=== PATIENT | female | born 1960 | race Hispanic/Latino ===

== ENCOUNTER 2016-09-10 12:50 | Emergency (ER) | payer OTHER, MEDICAID ==
[2016-09-10 12:58] VITALS: TEMP 99.2; O2SAT 98
[2016-09-10 13:01] VITALS: BMI 40.7
--- NOTE | 2016-09-10 14:12 | ED PDOC ---
Arrival/HPI - General Chief Complaint: Lower Extremity Problem/Injury Time Seen by Provider: 09/10/16 13:18 Historian: Patient - History of Present Illness Narrative History of Present Illness (Text): 09/10/16 13:54 A 55 year old female, whose past medical history includes diabetes, hypertension , asthma, low calcium, rhabdomyolysis and right knee fracture/surgery in 2011, presents to the emergency department complaining of right lower extremity pain for the past few days. Patient reports she felt a muscle pull while getting on a bus. Patient able to ambulate. Patient denies any trauma, fever, chills, nausea, vomiting, diarrhea, abdominal pain, chest pain, shortness of breath or any other complaints. PMD: Dr. Smalls Orthopedist: Dr. Armstrong Time/Duration: Other (few days) Symptom Course: Unchanged Quality: Other Context: Other Past Medical History - Provider Review Nursing Documentation Reviewed: Yes - Tetanus Immunization Tetanus Immunization: Up to Date - Cardiac Hx Cardiac Disorders: Yes Hx Hypertension: Yes Hx Peripheral Edema: Yes - Pulmonary Hx Respiratory Disorders: Yes Hx Asthma: Yes - Neurological Hx Neurological Disorder: No - HEENT Hx HEENT Disorder: No - Renal Hx Renal Disorder: No - Endocrine/Metabolic Hx Endocrine Disorders: Yes Hx Diabetes Mellitus Type 2: Yes Hx Hypothyroidism: Yes - Hematological/Oncological Hx Blood Disorders: No - Integumentary Hx Dermatological Disorder: No - Musculoskeletal/Rheumatological Hx Musculoskeletal Disorders: Yes (Sciatica) Hx Arthritis: Yes Hx Back Pain: Yes Hx Degenerative Joint Disease: Yes Hx Falls: No Hx Fractures: Yes (Hx of Right femur fx.) Hx Unsteady Gait: Yes (Ambulates with cane.) - Gastrointestinal Hx Gastrointestinal Disorders: Yes (Hiatal Hernia) - Genitourinary/Gynecological Hx Genitourinary Disorders: Yes (Ovarian Cysts.) Hx Urinary Tract Infection: Yes - Psychiatric Hx Psychophysiologic Disorder: Yes Hx Anxiety: Yes Hx Depression: Yes (States son last year.) Hx Substance Use: No - Surgical History Hx Hysterectomy: Yes Hx Joint Replacement: Yes (Right knee replacement.) Other/Comment: Breast Reduction - Anesthesia Hx Anesthesia: Yes Hx Anesthesia Reactions: No Hx Malignant Hyperthermia: No - Suicidal Assessment Feels Threatened In Home Enviroment: No Family/Social History - Physician Review Nursing Documentation Reviewed: Yes Family/Social History: No Known Family HX Smoking Status: Never Smoked Hx Alcohol Use: No Hx Substance Use: No Hx Substance Use Treatment: No Allergies/Home Meds Allergies/Adverse Reactions: Allergies No Known Allergies Allergy (Verified 07/23/13 19:13) Home Medications: Home Meds Medication Instructions Recorded Confirmed Clonazepam [Klonopin] 1 mg PO TID 11/12/11 09/10/16 Glimepiride [Amaryl] 4 mg PO Q12 11/12/11 09/10/16 Levothyroxine Sodium [Levoxyl] 0.3 mg PO DAILY 11/12/11 09/10/16 Valsartan [Diovan] 160 mg PO DAILY 11/12/11 09/10/16 Insulin Aspart, Recombinant 20 unit SC TID 07/23/13 09/10/16 [Novolog] Insulin Glargine,Hum.rec.anlog 65 unit SC HS 07/23/13 09/10/16 [Lantus] Metformin Hydrochloride [Glumetza] 1,000 mg PO BID 07/23/13 09/10/16 Mometasone/Formoterol [Dulera] 2 puff IH BID 07/23/13 09/10/16 Roflumilast [Daliresp] 500 mcg PO DAILY 07/23/13 09/10/16 Amlodipine Besylate/Benazepril 1 cap PO DAILY 09/10/16 09/10/16 [Lotrel 5-20 mg Capsule] Review of Systems - Physician Review All systems were reviewed & negative as marked: Yes - Review of Systems Constitutional: absent: Fevers, Night Sweats Respiratory: absent: SOB Cardiovascular: absent: Chest Pain Gastrointestinal: absent: Abdominal Pain, Diarrhea, Nausea, Vomiting Musculoskeletal: Other (Right lower extremity pain) Physical Exam Vital Signs Reviewed: Yes Vital Signs Temp Pulse Resp BP Pulse Ox 09/10/16 15:16 94 H 18 118/59 L 98 09/10/16 12:51 99.2 F 105 H 19 121/50 L 98 09/10/16 12:50 99.2 F 105 H 19 121/50 L 98 Temperature: Afebrile Blood Pressure: Hypotensive Pulse: Tachycardic Respiratory Rate: Normal Appearance: Positive for: Well-Appearing, Non-Toxic, Comfortable Pain Distress: None Mental Status: Positive for: Alert and Oriented X 3 - Systems Exam Head: Present: Atraumatic, Normocephalic Pupils: Present: PERRL Extroacular Muscles: Present: EOMI Conjunctiva: Present: Normal Mouth: Present: Moist Mucous Membranes Respiratory/Chest: Present: Clear to Auscultation, Good Air Exchange. No: Respiratory Distress, Accessory Muscle Use Cardiovascular: Present: Regular Rate and Rhythm, Normal S1, S2. No: Murmurs Upper Extremity: Present: Normal Inspection. No: Cyanosis, Edema Lower Extremity: Present: Normal Inspection, NORMAL PULSES, Normal ROM, Tenderness (to superior roberson ), Neurovascularly Intact. No: Edema, CALF TENDERNESS, Swelling, Erythema, Deformity, Temperature Abnormalties Neurological: Present: GCS=15, CN II-XII Intact, Speech Normal Skin: Present: Warm, Dry, Normal Color. No: Rashes Psychiatric: Present: Alert, Oriented x 3, Normal Insight, Normal Concentration Medical Decision Making ED Course and Treatment: 09/10/16 13:54 Impression: A 55 year old female with right lower extremity pain. On exam, mild tenderness to superior patella. Differential Diagnosis included but are not limited to: Musculoskeletal Plan: -- Flexeril and Toradol -- Reassess and disposition Progress Notes: 09/10/16 15:08 On re-evaluation, patient feels better and is in no acute distress. An júnior bandage was applied to patients knee. I have discussed the plan with the patient , who expresses understanding. Patient in agreement with plan to be discharged home. Patient is stable for discharge. Patient states she will follow up with orthopedist, Dr. Armstrong, this week. Patient was instructed to return if symptoms worsen or new concerning symptoms arise. - Medication Orders Current Medication Orders: Discontinued Medications Cyclobenzaprine HCl (Flexeril) 10 mg PO STAT STA Stop: 09/10/16 13:55 Last Admin: 09/10/16 14:32 Dose: 10 mg Ketorolac Tromethamine (Toradol) 60 mg IM STAT STA Stop: 09/10/16 13:55 Last Admin: 09/10/16 14:32 Dose: 60 mg - Scribe Statement The provider has reviewed the documentation as recorded by the Harish Avalos Provider Scribe Attestation: All medical record entries made by the Scribe were at my direction and personally dictated by me. I have reviewed the chart and agree that the record accurately reflects my personal performance of the history, physical exam, medical decision making, and the department course for this patient. I have also personally directed, reviewed, and agree with the discharge instructions and disposition. Disposition/Present on Arrival - Present on Arrival Any Indicators Present on Arrival: No History of DVT/PE: No History of Uncontrolled Diabetes: No Urinary Catheter: No History of Decub. Ulcer: No History Surgical Site Infection Following: None - Disposition Have Diagnosis and Disposition been Completed?: Yes Diagnosis: Leg strain Disposition: HOME/ ROUTINE Disposition Time: 15:08 Patient Plan: Discharge Condition: IMPROVED Discharge Instructions (ExitCare): Knee Pain (ED) Additional Instructions: Ms Javed thank you for letting us take care of you today. Your provider was Dr. Valerio. You were treated for Leg Strain; Knee Strain. The emergency medical care you received today was directed at your acute symptoms. If you were prescribed any medication, please fill it and take as directed. It may take several days for your symptoms to resolve. Return to the Emergency Department if your symptoms worsen, do not improve, or if you have any other problems. Please contact your doctor or call one of the physicians/clinics you have been referred to that are listed on the Patient Visit Information form that is included in your discharge packet. Bring any paperwork you were given at discharge with you along with any medications you are taking to your follow up visit. Our treatment cannot replace ongoing medical care by a primary care provider (PCP) outside of the emergency department. Thank you for allowing the [facility] team to be part of your care today. If you had an X-Ray or CT scan: A Radiologist will review the ED reading if any change in treatment is needed we will contact you. If you had a blood, urine, or wound culture: It will take several days for the results, if any change in treatment is needed we will contact you. If you had an STI test: It will take 48 hours for the results. Please call after 1 week if you have not heard back. Prescriptions: Naproxen 500 mg PO BID PRN #30 tab PRN Reason: Pain, Moderate (4-7) Referrals: Janine Smalls MD [Primary Care Provider] - Follow up with primary Gilbert Armstrong DO [Staff Provider] - Follow up with primary Forms: [employer] (Tanzanian)
[2016-09-10 15:17] VITALS: BP 118/59; PULSE 94; RESP 18
== END 2016-09-10 15:25 | disposition home or self-care (01) ==
LOC: ED 12:50
DX: S86.911A Strain of unspecified muscle(s) and tendon(s) at lower leg level, right leg, initial encounter (principal); X50.0XXA Overexertion from strenuous movement or load, initial encounter; Y93.89 Activity, other specified; Y92.89 Other specified places as the place of occurrence of the external cause
CPT/HCPCS: 96372; 99284; J1885

== ENCOUNTER 2018-06-01 23:13 | Emergency (ER) | payer OTHER, MEDICAID ==
[2018-06-01 23:13] VITALS: BMI 40.7
--- NOTE | 2018-06-01 23:25 | ED PDOC ---
Arrival/HPI - General Time Seen by Provider: 06/01/18 23:17 Historian: Patient - History of Present Illness Narrative History of Present Illness (Text): 06/01/18 23:25 Priscila Javed is a 57 year old female, whose past medical history includes diabetes, hypertension, asthma, parathyroidectomy, and hypothyroidism, who presents to the Emergency department complaining of shortness of breath. Patient states she began experiencing shortness of breath with associated itchiness and facial/lip swelling tonight after washing her dog. Patient states she has a history of similar allergic reactions but is unsure what may be the trigger. Patient states she took 2 tablets of Benadryl with no significant relief. Patient denies any chest pain, nausea, vomiting, urinary symptoms, headache, dizziness, or any other complaints. Symptom Onset: Gradual Symptom Course: Unchanged Activities at Onset: Light Context: Home Past Medical History - Provider Review Nursing Documentation Reviewed: Yes - Tetanus Immunization Tetanus Immunization: Up to Date - Reproductive Currently : No - Cardiac Hx Cardiac Disorders: Yes Hx Hypertension: Yes Hx Peripheral Edema: Yes - Pulmonary Hx Respiratory Disorders: Yes Hx Asthma: Yes - Neurological Hx Neurological Disorder: No - HEENT Hx HEENT Disorder: No - Renal Hx Renal Disorder: No - Endocrine/Metabolic Hx Endocrine Disorders: Yes Hx Diabetes Mellitus Type 2: Yes Hx Hypothyroidism: Yes - Hematological/Oncological Hx Blood Disorders: No - Integumentary Hx Dermatological Disorder: No - Musculoskeletal/Rheumatological Hx Musculoskeletal Disorders: Yes (Sciatica) Hx Arthritis: Yes Hx Back Pain: Yes Hx Degenerative Joint Disease: Yes Hx Falls: No Hx Fractures: Yes (Hx of Right femur fx.) Hx Unsteady Gait: Yes (Ambulates with cane.) - Gastrointestinal Hx Gastrointestinal Disorders: Yes (Hiatal Hernia) - Genitourinary/Gynecological Hx Genitourinary Disorders: Yes (Ovarian Cysts.) Hx Urinary Tract Infection: Yes - Psychiatric Hx Psychophysiologic Disorder: Yes Hx Anxiety: Yes Hx Depression: Yes (States son last year.) Hx Substance Use: No - Surgical History Hx Hysterectomy: Yes Hx Joint Replacement: Yes (Right knee replacement.) Other/Comment: Breast Reduction - Anesthesia Hx Anesthesia: Yes Hx Anesthesia Reactions: No Hx Malignant Hyperthermia: No - Suicidal Assessment Feels Threatened In Home Enviroment: No Family/Social History - Physician Review Nursing Documentation Reviewed: Yes Family/Social History: Unknown Family HX Smoking Status: Never Smoked Hx Alcohol Use: No Hx Substance Use: No Hx Substance Use Treatment: No Allergies/Home Meds Allergies/Adverse Reactions: Allergies No Known Allergies Allergy (Verified 01/23/18 08:15) Home Medications: Home Meds Medication Instructions Recorded Confirmed Clonazepam [Klonopin] 1 mg PO TID 11/12/11 09/10/16 Glimepiride [Amaryl] 4 mg PO Q12 11/12/11 09/10/16 Levothyroxine Sodium [Levoxyl] 0.3 mg PO DAILY 11/12/11 09/10/16 Valsartan [Diovan] 160 mg PO DAILY 11/12/11 09/10/16 Insulin Aspart, Recombinant 20 unit SC TID 07/23/13 09/10/16 [Novolog] Insulin Glargine,Hum.rec.anlog 65 unit SC HS 07/23/13 09/10/16 [Lantus] Metformin Hydrochloride [Glumetza] 1,000 mg PO BID 07/23/13 09/10/16 Mometasone/Formoterol [Dulera] 2 puff IH BID 07/23/13 09/10/16 Roflumilast [Daliresp] 500 mcg PO DAILY 07/23/13 09/10/16 Amlodipine Besylate/Benazepril 1 cap PO DAILY 09/10/16 09/10/16 [Lotrel 5-20 mg Capsule] Review of Systems - Physician Review All systems were reviewed & negative as marked: Yes - Review of Systems Constitutional: Normal. absent: Fevers Eyes: Normal ENT: Normal Respiratory: SOB. absent: Cough Cardiovascular: Normal. absent: Chest Pain Gastrointestinal: Normal. absent: Abdominal Pain, Diarrhea, Nausea, Vomiting Genitourinary Female: Normal. absent: Dysuria, Frequency, Hematuria, Urine Output Changes Musculoskeletal: Normal. absent: Back Pain, Neck Pain Skin: Normal. absent: Rash Neurological: Normal. absent: Headache, Dizziness Endocrine: Normal Hemo/Lymphatic: Normal Psychiatric: Normal Physical Exam Vital Signs Reviewed: Yes Temperature: Afebrile Blood Pressure: Normal Pulse: Regular Respiratory Rate: Normal Appearance: Positive for: Well-Appearing, Non-Toxic, Comfortable Pain Distress: None Mental Status: Positive for: Alert and Oriented X 3 - Systems Exam Head: Present: Atraumatic, Normocephalic, Swelling (Mild facial swelling) Pupils: Present: PERRL Extroacular Muscles: Present: EOMI Conjunctiva: Present: Normal Ears: Present: Normal, NORMAL TM, Normal Canal. No: Erythema, TM Bulging, Fluid, TM Perf Mouth: Present: Moist Mucous Membranes. No: Normal Lips (Mild swelling to lips) Pharnyx: Present: Normal. No: ERYTHEMA, EXUDATE, TONSILS ENLARGED, Peritonsilar Swelling, Uvular Deviation, Muffled/Hoarse Voice, Strider, Soft Palate/Uvular Edema Nose (External): Present: Atraumatic Nose (Internal): Present: Normal Inspection Neck: Present: Normal Range of Motion Respiratory/Chest: Present: Clear to Auscultation, Good Air Exchange. No: Respiratory Distress, Accessory Muscle Use Cardiovascular: Present: Regular Rate and Rhythm, Normal S1, S2. No: Murmurs Abdomen: No: Tenderness, Distention, Peritoneal Signs Back: Present: Normal Inspection Upper Extremity: Present: Normal Inspection. No: Cyanosis, Edema Lower Extremity: Present: Normal Inspection. No: Edema Neurological: Present: GCS=15, CN II-XII Intact, Speech Normal Skin: Present: Warm, Dry, Normal Color. No: Rashes Psychiatric: Present: Alert, Oriented x 3, Normal Insight, Normal Concentration Medical Decision Making ED Course and Treatment: 06/01/18 23:25 Impression: 57 year old female complaining of shortness of breath, itchiness, and facial/lip swelling tonight. Plan: -- Duoneb -- Benadryl -- Pepcid -- Solu-medrol -- Reassess and disposition Prior Visits: Notes and results from previous visits were reviewed. Progress Notes: - Scribe Statement The provider has reviewed the documentation as recorded by the Harish Myers Provider Scribe Attestation: All medical record entries made by the Scribe were at my direction and personally dictated by me. I have reviewed the chart and agree that the record accurately reflects my personal performance of the history, physical exam, medical decision making, and the department course for this patient. I have also personally directed, reviewed, and agree with the discharge instructions and disposition. Disposition/Present on Arrival - Present on Arrival Any Indicators Present on Arrival: No History of DVT/PE: No History of Uncontrolled Diabetes: No Urinary Catheter: No History of Decub. Ulcer: No History Surgical Site Infection Following: None - Disposition Have Diagnosis and Disposition been Completed?: Yes Diagnosis: Allergic reaction, Asthma Disposition: HOME/ ROUTINE Disposition Time: 03:49 Patient Plan: Discharge Patient Problems: Current Active Problems Problem Status Onset Allergic reaction Acute Condition: GOOD Additional Instructions: Take meds as prescribed/avoid exposure to animal dander/follow up with your doctor this week/any recurrent symptoms return to the emergency room Prescriptions: DiphenhydrAMINE [Benadryl] 50 mg PO Q6 PRN #24 cap PRN Reason: Itching / Pruritus predniSONE [Prednisone] 60 mg PO DAILY #15 tab
[2018-06-01 23:26] VITALS: TEMP 98
[2018-06-01] MEDS ORDERED: Albuterol-Ipratrop 3 mg / 0.5 (3 ml) UD IH STA (23:26)
[2018-06-01] MEDS ORDERED: DiphenhydrAMINE 50 mg/ml Inj IVP ONE (23:28)
[2018-06-02] MEDS ORDERED: DiphenhydrAMINE 50 mg/ml Inj IVP STA (01:19)
[2018-06-02 03:58] VITALS: BP 117/53; PULSE 76; RESP 12; O2SAT 95
== END 2018-06-02 03:59 | disposition home or self-care (01) ==
LOC: ED 23:13
DX: T78.40XA Allergy, unspecified, initial encounter (principal); J45.909 Unspecified asthma, uncomplicated; E11.9 Type 2 diabetes mellitus without complications; I10 Essential (primary) hypertension; E03.9 Hypothyroidism, unspecified
CPT/HCPCS: 96374; 96375; 96376; 99284; J1200; J2930